=== PATIENT | female | born 1995 | race Caucasian/White ===

== ENCOUNTER 2017-05-29 21:11 | Emergency (ER) | payer MEDICAID, OTHER ==
[~2017-05-29] VITALS: Ht 165.1 cm; Wt 136.8 kg
[~2017-05-29 21:11] MED LIST: DOCU-131 PO; IBUP-1222 PO
[2017-05-29 21:15] VITALS: BP 156/105
[2017-05-29] MEDS ORDERED: HYDROcodone/APAP 5/325 TABLET ONE (21:55)
[2017-05-29] MEDS ORDERED: HYDROcodone/APAP 5/325 TABLET PO ONE (22:00)
[2017-05-30] MEDS ORDERED: CARBAMAZEPINE 200 MG TABLET PO ONE
[2017-05-30] MEDS ORDERED: HYDROcodone/APAP 5/325 TABLET PO ONE
[2017-05-30] MEDS ORDERED: HYDROcodone/APAP 5/325 TABLET ONE (00:04)
[2017-05-30] MEDS ORDERED: CARBAMAZEPINE 100 MG TAB.CHEW PO ONE (00:15)
== END 2017-05-30 00:24 | disposition home or self-care (01) ==
LOC: ED 05-30 00:01
DX: G50.0 Trigeminal neuralgia (principal); M54.2 Cervicalgia; R51 Headache
CPT/HCPCS: 70490; 99284

== ENCOUNTER 2018-07-05 20:07 | Emergency (ER) | payer MEDICAID, OTHER ==
[~2018-07-05] VITALS: Ht 165.1 cm; Wt 128.0 kg
--- NOTE | 2018-07-05 21:00 | NUR ---
pt presents to ED with left knee, ankle pain, headache and neck pain after falling down approx 5 steps this [place]. pt is a&ox4, neuro intact. cms intact to left LE. call light in reach. bp and spo2 monitors in place. friend at bedside.
[2018-07-05 21:59] VITALS: BP 128/81
== END 2018-07-05 22:04 | disposition home or self-care (01) ==
LOC: ED 20:27
DX: S00.93XA Contusion of unspecified part of head, initial encounter (principal); S80.02XA Contusion of left knee, initial encounter; S90.02XA Contusion of left ankle, initial encounter; W10.9XXA Fall (on) (from) unspecified stairs and steps, initial encounter; Y93.89 Activity, other specified; Y92.009 Unspecified place in unspecified non-institutional (private) residence as the place of occurrence of the external cause; Y99.8 Other external cause status
CPT/HCPCS: 70450; 72125; 99284

== ENCOUNTER 2019-01-16 08:03 | Outpatient (CLI) | payer OTHER, MEDICAID | END 2019-01-16 23:59 | disposition home or self-care (01) | LOC: CARD 08:03 | PROVIDERS: ATTEND Psychiatry & Neurology Neurology | DX: R55 Syncope and collapse (principal); I10 Essential (primary) hypertension | CPT/HCPCS: 95819 ==